=== PATIENT | male | born 1970 ===

== ENCOUNTER 2018-12-03 23:21 | Emergency (ER) | payer SELFPAY ==
[~2018-12-03] VITALS: Ht 177.8 cm; Wt 90.0 kg
[2018-12-03 23:24] VITALS: BP 108/73
[2018-12-03] MEDS ORDERED: LIDOCAINE-MPF 1%, 5ML INFIL ONE (23:30)
--- NOTE | 2018-12-04 01:51 | NUR ---
PT CALLED FROM LOBBY, NOT IN LOBBY AT THIS TIME, WAS NOTED TO HAVE LEFT
--- NOTE | 2018-12-04 02:05 | NUR ---
2ND CALL FOR ROOM, NO ANSWER.
--- NOTE | 2018-12-04 02:34 | NUR ---
3RD CALL FOR ROOM. NO ANSWER. UNABLE TO LOCATE IN LOBBY.
== END 2018-12-04 02:36 | disposition left against medical advice (07) ==
LOC: ED 12-04 02:22
DX: S61.452A Open bite of left hand, initial encounter (principal); S61.451A Open bite of right hand, initial encounter; W54.0XXA Bitten by dog, initial encounter; Y93.89 Activity, other specified; Y92.410 Unspecified street and highway as the place of occurrence of the external cause; Y99.8 Other external cause status
CPT/HCPCS: 99283